=== PATIENT | male | born 1955 | race Caucasian/White ===

== ENCOUNTER 2022-03-23 13:34 | Outpatient (CLI) | payer MEDICARE, BC | END 2022-03-23 13:35 | disposition home or self-care (01) | LOC: BICMRI 13:34 | PROVIDERS: ATTEND Orthopaedic Surgery Orthopaedic Surgery of the Spine | DX: M54.9 Dorsalgia, unspecified (principal); M47.816 Spondylosis without myelopathy or radiculopathy, lumbar region | CPT/HCPCS: 72148 ==

== ENCOUNTER 2022-08-04 13:38 | Outpatient (CLI) | payer MEDICARE, BC | END 2022-08-04 13:39 | disposition home or self-care (01) | LOC: BICRAD 13:38 | DX: M25.551 Pain in right hip (principal); M16.11 Unilateral primary osteoarthritis, right hip ==

== ENCOUNTER 2025-09-15 08:29 | Outpatient (CLI) | payer MEDICARE, BC ==
[2025-09-15 09:02] LABS: Estimated GFR - POC 65.0
[2025-09-15] MEDS ORDERED: Iopamidol 370 76% 100 ML VIAL ONE (11:47)
== END 2025-09-15 08:30 | disposition home or self-care (01) ==
LOC: CT 08:29
PROVIDERS: ATTEND Specialist
DX: C09.9 Malignant neoplasm of tonsil, unspecified (principal); R59.0 Localized enlarged lymph nodes
CPT/HCPCS: 36415; 70492; 82565

== ENCOUNTER 2025-09-21 10:36 | Outpatient (CLI) | payer MEDICARE, BC | END 2025-09-21 10:37 | disposition home or self-care (01) | LOC: PET 10:36 | PROVIDERS: ATTEND Radiology Radiation Oncology | DX: C09.8 Malignant neoplasm of overlapping sites of tonsil (principal); J35.9 Chronic disease of tonsils and adenoids, unspecified | CPT/HCPCS: 78815; A9552 ==